=== PATIENT | male | born 1975 | race Caucasian/White ===

== ENCOUNTER 2022-11-04 15:24 | Emergency (ER) | payer BC, OTHER ==
[~2022-11-04] VITALS: Ht 185.4 cm; Wt 91.0 kg
[2022-11-04 15:35] VITALS: BP 133/80
[2022-11-04 16:04] LABS: Basophils # (auto) 0 10 ^3/uL (0-0.2); Basophils % (auto) 0.6 % (0.0-2.0); Eosinophils # (auto) 0.1 10 ^3/uL (0-0.8); Eosinophils % (auto) 1.3 % (0.0-7.0); Hematocrit 43.8 % (41.0-53.0); Hemoglobin 14.7 g/dL (13.5-17.5); Lymphocytes # (auto) 1.8 10 ^3/uL (0.4-5.4); Lymphocytes % (auto) 30.7 % (10.0-50.0); Mean Corpuscular Hemoglobin 30.1 pg (28.0-32.0); Mean Corpuscular Hgb Conc. 33.6 g/dL (32.0-36.0); Mean Corpuscular Volume 89.7 fL (80.0-100.0); Monocytes # (auto) 0.6 10 ^3/uL (0-1.3); Monocytes % (auto) 9.7 % (0.0-12.0); Neutrophils # (auto) 3.4 10 ^3/uL (1.6-8.6); Neutrophils % (auto) 57.7 % (37.0-80.0); Nucleated Red Blood Cells % 0.2 %; Red Blood Cells 4.88 10^6/uL (4.5-5.90); Red Cell Distribution Width 13.5 % (11.8-14.3); White Blood Cell 5.9 10^3/uL (4.4-10.8)
[2022-11-04 16:20] LABS: INR 0.97 (0.9-1.15); Partial Thromboplastin Time 28.1 sec (24.6-33.4)
[2022-11-04 16:35] LABS: Albumin 4.1 g/dL (3.4-5.0); Calcium 8.4 mg/dL (8.5-10.1); Magnesium 2.3 mg/dL (1.6-2.6); Potassium 4.6 mmol/L (3.5-5.1)
[2022-11-04 16:39] LABS: BUN/Creatinine Ratio 18.2 (10.0-20.0); Bilirubin, Total 0.3 mg/dL (0.2-1.0); Total Protein 7.1 g/dL (6.4-8.2)
[2022-11-04] MEDS ORDERED: ALBUTEROL SULF 2.5 MG/0.5ML(0.5%) NEB SOLN NEB ONE (17:15)
[2022-11-04] MEDS ORDERED: DexAMETHasone SOD PHOS 10MG/1ML VIAL INJ IM ONE (17:15)
[2022-11-04] MEDS ORDERED: IPRATROPIUM BROM 0.5 MG/2.5ML INH SOL NEB ONE (17:15)
[2022-11-04] MEDS ORDERED: AZIT-81 PO (21:20)
[2022-11-04] MEDS ORDERED: IBUP-1454 PO (21:20)
[2022-11-04] MEDS ORDERED: NITR0.4S29 SL (21:20)
== END 2022-11-04 22:26 | disposition home or self-care (01) ==
LOC: ER 15:24
DX: J40 Bronchitis, not specified as acute or chronic (principal); R07.89 Other chest pain; F17.210 Nicotine dependence, cigarettes, uncomplicated
CPT/HCPCS: 36415; 71045; 80053; 83735; 83880; 84484; 85025; 85610; 85730; 93005; 94640; 96372; 99285; J1100; J7644

== ENCOUNTER 2022-11-27 14:45 | Inpatient (IN) | payer BC ==
[~2022-11-27] VITALS: Ht 185.4 cm; Wt 92.0 kg
[~2022-11-27 14:45] MED LIST: AZIT-81 PO; IBUP-1454 PO; NITR0.4S29 SL
[2022-11-27] MEDS ORDERED: SODIUM CHLORIDE 0.9% 500 ML IV ONE (15:00)
[2022-11-27] MEDS ORDERED: MORPHINE SULFATE INJ 2 MG/ml SYRG IV ONE (15:00)
[2022-11-27 15:36] LABS: Basophils # (auto) 0 10 ^3/uL (0-0.2); Basophils % (auto) 0.4 % (0.0-2.0); Eosinophils # (auto) 0 10 ^3/uL (0-0.8); Eosinophils % (auto) 0.7 % (0.0-7.0); Hematocrit 39.4 % (41.0-53.0); Hemoglobin 13.2 g/dL (13.5-17.5); Lymphocytes # (auto) 0.7 10 ^3/uL (0.4-5.4); Lymphocytes % (auto) 10.9 % (10.0-50.0); Mean Corpuscular Hgb Conc. 33.6 g/dL (32.0-36.0); Mean Corpuscular Volume 89.3 fL (80.0-100.0); Monocytes # (auto) 0.5 10 ^3/uL (0-1.3); Monocytes % (auto) 8.2 % (0.0-12.0); Neutrophils # (auto) 5.3 10 ^3/uL (1.6-8.6); Neutrophils % (auto) 79.8 % (37.0-80.0); Nucleated Red Blood Cells % 0.1 %; Red Blood Cells 4.41 10^6/uL (4.5-5.90); Red Cell Distribution Width 13.9 % (11.8-14.3); White Blood Cell 6.7 10^3/uL (4.4-10.8)
[2022-11-27 15:55] LABS: Albumin 3.5 g/dL (3.4-5.0); Calcium 8.2 mg/dL (8.5-10.1); Magnesium 2.2 mg/dL (1.6-2.6)
[2022-11-27 15:58] LABS: BUN/Creatinine Ratio 24.1 (10.0-20.0); Bilirubin, Total 0.3 mg/dL (0.2-1.0); Total Protein 6.3 g/dL (6.4-8.2)
[2022-11-27] MEDS ORDERED: HYDROcodone-ACET 10/325MG TAB PO ONE (19:30)
[2022-11-27] MEDS ORDERED: diphenhdrAMINE HCL 50 MG/1 ML VL IV ONE (20:00)
[2022-11-27] MEDS ORDERED: HYDROcodone-ACET 7.5/325MG TAB PO ONE (23:00)
[2022-11-27] MEDS ORDERED: NITROGLYCERIN 0.4 MG SL TAB SL PRN (23:30)
[2022-11-27] MEDS ORDERED: MORPHINE SULFATE INJ 2 MG/ml SYRG IV PRN (23:30)
[2022-11-27] MEDS ORDERED: ONDANSETRON HCL 4 MG/2 ML VIAL IV PRN (23:30)
[2022-11-27] MEDS ORDERED: TEMAZEPAM 15 MG CAP PO PRN (23:30)
[2022-11-27] MEDS ORDERED: traMADol HCL 50 MG TAB PO PRN (23:30)
[2022-11-28 06:50] LABS: BUN/Creatinine Ratio 22.4 (10.0-20.0)
[2022-11-28] MEDS: ACETAMINOPHEN 325 MG TAB PO PRN ×2 (09:03→21:39)
[2022-11-28] MEDS: PANTOPRAZOLE 40 MG TAB PO SCH (10:00)
[2022-11-28] MEDS ORDERED: ASPirin 81 mg TAB PO SCH (10:00)
[2022-11-28 12:03] LABS: Cholesterol 190 mg/dL (< 200); HDL Cholesterol 53 mg/dL (40-59); LDL Cholesterol 113 mg/dL (< 100); Triglycerides 98 mg/dL (< 150)
[2022-11-28] MEDS ORDERED: COLCHICINE 0.6 MG CAP PO ONE (12:45)
[2022-11-28] MEDS ORDERED: HYDROcodone-ACET 5/325MG TAB PO PRN (12:45)
[2022-11-28 13:35] LABS: Urine Bacteria NONE SEEN /hpf (None Seen); Urine Blood Negative /uL (Negative); Urine Mucus FEW (None Seen); Urine Specific Gravity 1.033 (1.001-1.035); Urine WBC 1 /hpf (0 - 3)
[2022-11-28 14:00] LABS: Alcohol, Urine < 3.0 mg/dL (0-10); Amphetamine Screen, Urine NEGATIVE (NEGATIVE); Barbiturate Scree,Urine NEGATIVE (NEGATIVE); Benzodiazephine Screen, Urine NEGATIVE (NEGATIVE); Cannabinoid Screen, Urine NEGATIVE (NEGATIVE); Cocaine Screen, Urine NEGATIVE (NEGATIVE); Opiate Scree,Urine POSITIVE (NEGATIVE)
[2022-11-28 14:09] LABS: Phencyclidine Screen, Urine NEGATIVE (NEGATIVE)
[2022-11-28] MEDS ORDERED: IOHEXOL 300 MG/ML 100ML BOTTLE IJ ONE (15:59)
[2022-11-28 17:20] VITALS: BP_SYST 121; BP_SYST 171; BP_DIAS 84; BP_DIAS 85
[2022-11-28 17:21] VITALS: BP_SYST 115; BP_SYST 185; BP_DIAS 75; BP_DIAS 96
[2022-11-28 17:29] VITALS: BP 128/77
[2022-11-28] MEDS: HYDROcodone-ACET 5/325MG TAB PO PRN (18:46)
[2022-11-28] MEDS: ATORVASTATIN 20 MG TAB PO SCH (21:40)
[2022-11-28] MEDS: COLCHICINE 0.6 MG CAP PO SCH (21:40)
[2022-11-28 22:00] VITALS: BP 130/77
[2022-11-28] MEDS ORDERED: ATORVASTATIN 20 MG TAB PO SCH (22:00)
[2022-11-29] VITALS (8 sets, daily range): BP systolic 11–132; BP diastolic 58–71
[2022-11-29] MEDS: HYDROcodone-ACET 5/325MG TAB PO PRN ×4 (00:55→22:27)
[2022-11-29 07:55] LABS: Basophils # (auto) 0 10 ^3/uL (0-0.2); Basophils % (auto) 0.4 % (0.0-2.0); Eosinophils # (auto) 0.1 10 ^3/uL (0-0.8); Eosinophils % (auto) 1.7 % (0.0-7.0); Hematocrit 39.5 % (41.0-53.0); Hemoglobin 13.1 g/dL (13.5-17.5); Lymphocytes # (auto) 0.9 10 ^3/uL (0.4-5.4); Lymphocytes % (auto) 15.7 % (10.0-50.0); Mean Corpuscular Hgb Conc. 33.2 g/dL (32.0-36.0); Mean Corpuscular Volume 90.3 fL (80.0-100.0); Monocytes # (auto) 0.7 10 ^3/uL (0-1.3); Monocytes % (auto) 12.1 % (0.0-12.0); Neutrophils % (auto) 70.1 % (37.0-80.0); Nucleated Red Blood Cells % 0.3 %; Red Blood Cells 4.38 10^6/uL (4.5-5.90); Red Cell Distribution Width 13.6 % (11.8-14.3); White Blood Cell 5.7 10^3/uL (4.4-10.8)
[2022-11-29] MEDS: PANTOPRAZOLE 40 MG TAB PO SCH (08:46)
[2022-11-29] MEDS: COLCHICINE 0.6 MG CAP PO SCH ×2 (08:46→22:27)
[2022-11-29] MEDS: ASPirin 81 mg TAB PO SCH (08:49)
[2022-11-29 09:41] LABS: Albumin 3.3 g/dL (3.4-5.0); BUN/Creatinine Ratio 18.3 (10.0-20.0); Calcium 8.1 mg/dL (8.5-10.1); Potassium 4.4 mmol/L (3.5-5.1)
[2022-11-29 09:44] LABS: Bilirubin, Total 0.2 mg/dL (0.2-1.0); Total Protein 6.2 g/dL (6.4-8.2)
[2022-11-29] MEDS ORDERED: NICOTINE 14 MG/24HR TOPICAL PATCH TD ONE (11:00)
[2022-11-29] MEDS ORDERED: KETOROLAC TROMETH 30 MG/ML 1ML VIAL IV ONE (17:30)
[2022-11-29] MEDS ORDERED: KETOROLAC TROMETH 60MG/2ML VIAL IV ONE (17:45)
[2022-11-29] MEDS: ATORVASTATIN 20 MG TAB PO SCH (22:27)
[2022-11-30 05:00] VITALS: BP 135/76
[2022-11-30 08:00] VITALS: BP 110/60
[2022-11-30] MEDS: PANTOPRAZOLE 40 MG TAB PO SCH (09:18)
[2022-11-30] MEDS: ASPirin 81 mg TAB PO SCH (09:18)
[2022-11-30] MEDS: HYDROcodone-ACET 5/325MG TAB PO PRN ×2 (09:19→18:33)
[2022-11-30] MEDS ORDERED: LORazepam 2MG/ML-1ML VIAL IV PRN (09:30)
[2022-11-30] MEDS: NICOTINE 14 MG/24HR TOPICAL PATCH TD SCH (10:00)
[2022-11-30] MEDS: COLCHICINE 0.6 MG CAP PO SCH ×2 (10:00→21:30)
[2022-11-30 12:00] VITALS: BP 114/69
[2022-11-30 14:50] LABS: Hepatitis C Antibody Negative (Negative)
[2022-11-30 16:00] VITALS: BP 105/68
[2022-11-30 20:00] VITALS: BP 116/67
[2022-11-30] MEDS: ATORVASTATIN 20 MG TAB PO SCH (21:30)
[2022-11-30 22:00] VITALS: BP 116/67
[2022-12-01] MEDS: HYDROcodone-ACET 5/325MG TAB PO PRN (03:53)
[2022-12-01 04:30] VITALS: BP 109/69
[2022-12-01 08:00] VITALS: BP 111/64
[2022-12-01] MEDS: COLCHICINE 0.6 MG CAP PO SCH ×2 (10:00→21:40)
[2022-12-01] MEDS: PANTOPRAZOLE 40 MG TAB PO SCH (11:06)
[2022-12-01] MEDS: ASPirin 81 mg TAB PO SCH (11:06)
[2022-12-01] MEDS: NICOTINE 14 MG/24HR TOPICAL PATCH TD SCH (11:06)
[2022-12-01 12:00] VITALS: BP 114/69
[2022-12-01 16:00] VITALS: BP 120/68
[2022-12-01 20:00] VITALS: BP 115/55
[2022-12-01] MEDS ORDERED: LORazepam 2MG/ML-1ML VIAL IV PRN (21:30)
[2022-12-01] MEDS: ATORVASTATIN 20 MG TAB PO SCH (21:40)
[2022-12-01 22:00] VITALS: BP 115/55
[2022-12-02 05:00] VITALS: BP 111/67
[2022-12-02 06:03] LABS: Basophils # (auto) 0 10 ^3/uL (0-0.2); Basophils % (auto) 0.5 % (0.0-2.0); Eosinophils # (auto) 0.1 10 ^3/uL (0-0.8); Eosinophils % (auto) 1.6 % (0.0-7.0); Hematocrit 38.2 % (41.0-53.0); Hemoglobin 13.2 g/dL (13.5-17.5); Lymphocytes # (auto) 1.1 10 ^3/uL (0.4-5.4); Lymphocytes % (auto) 17.5 % (10.0-50.0); Mean Corpuscular Hemoglobin 30.2 pg (28.0-32.0); Mean Corpuscular Hgb Conc. 34.6 g/dL (32.0-36.0); Mean Corpuscular Volume 87.3 fL (80.0-100.0); Monocytes # (auto) 0.4 10 ^3/uL (0-1.3); Monocytes % (auto) 5.9 % (0.0-12.0); Neutrophils # (auto) 4.6 10 ^3/uL (1.6-8.6); Neutrophils % (auto) 74.5 % (37.0-80.0); Nucleated Red Blood Cells % 0.1 %; Red Blood Cells 4.37 10^6/uL (4.5-5.90); Red Cell Distribution Width 13.2 % (11.8-14.3); White Blood Cell 6.2 10^3/uL (4.4-10.8)
[2022-12-02 06:18] LABS: Calcium 8.4 mg/dL (8.5-10.1); Potassium 4.2 mmol/L (3.5-5.1)
[2022-12-02 06:21] LABS: BUN/Creatinine Ratio 26.4 (10.0-20.0)
[2022-12-02 09:00] VITALS: BP 109/61
[2022-12-02] MEDS: NICOTINE 14 MG/24HR TOPICAL PATCH TD SCH (09:41)
[2022-12-02] MEDS: PANTOPRAZOLE 40 MG TAB PO SCH (09:41)
[2022-12-02] MEDS: COLCHICINE 0.6 MG CAP PO SCH ×2 (09:41→22:00)
[2022-12-02] MEDS: ASPirin 81 mg TAB PO SCH (09:41)
[2022-12-02 13:00] VITALS: BP 103/56
[2022-12-02 20:00] VITALS: BP 116/68
[2022-12-02 22:00] VITALS: BP 116/68
[2022-12-02] MEDS: ATORVASTATIN 20 MG TAB PO SCH (22:00)
[2022-12-03 05:00] VITALS: BP 121/75
[2022-12-03 09:00] VITALS: BP 115/57
[2022-12-03] MEDS: ASPirin 81 mg TAB PO SCH (09:35)
[2022-12-03] MEDS: PANTOPRAZOLE 40 MG TAB PO SCH (09:35)
[2022-12-03] MEDS: NICOTINE 14 MG/24HR TOPICAL PATCH TD SCH (09:36)
[2022-12-03] MEDS: COLCHICINE 0.6 MG CAP PO SCH ×2 (09:36→22:00)
[2022-12-03 13:00] VITALS: BP 106/59
[2022-12-03 17:00] VITALS: BP 123/72
[2022-12-03 22:00] VITALS: BP_SYST 111; BP_SYST 113; BP_SYST 123; BP_DIAS 70; BP_DIAS 72; BP_DIAS 74
[2022-12-03] MEDS: ATORVASTATIN 20 MG TAB PO SCH (22:00)
[2022-12-04 05:00] VITALS: BP_SYST 114; BP_DIAS 64; BP_DIAS 83
[2022-12-04] MEDS: HYDROcodone-ACET 5/325MG TAB PO PRN (05:00)
[2022-12-04 08:42] VITALS: BP 90/50
[2022-12-04] MEDS: NICOTINE 14 MG/24HR TOPICAL PATCH TD SCH (09:16)
[2022-12-04] MEDS: ASPirin 81 mg TAB PO SCH (09:16)
[2022-12-04] MEDS: COLCHICINE 0.6 MG CAP PO SCH (10:00)
[2022-12-04] MEDS: PANTOPRAZOLE 40 MG TAB PO SCH (10:00)
[2022-12-04 12:56] VITALS: BP 98/64
== END 2022-12-04 14:45 | disposition home or self-care (01) | DRG 312 ==
LOC: ER 14:45 → EDBD 14:45 → TELE 23:27 → TELE-CENTR 11-28 13:26
PROVIDERS: ADMIT Nurse Practitioner; ATTEND Internal Medicine Pulmonary Disease
DX: R55 Syncope and collapse (principal); I31.39 Other pericardial effusion (noninflammatory); F17.210 Nicotine dependence, cigarettes, uncomplicated; R51.9 Headache, unspecified; I95.9 Hypotension, unspecified; R07.89 Other chest pain; H93.13 Tinnitus, bilateral; Z71.6 Tobacco abuse counseling; Z82.49 Family history of ischemic heart disease and other diseases of the circulatory system; Z86.73 Personal history of transient ischemic attack (TIA), and cerebral infarction without residual deficits; Z91.81 History of falling
CPT/HCPCS: 36415; 70450; 70540; 70551; 71045; 71260; 72141; 80048; 80053; 80061; 80307; 81001; 83036; 83735; 84443; 84484; 85025; 85652; 86141; 86803; 87340; 93005; 93306; 93886; 95819; 96361; 96374; 96375; G0378; J2405